=== PATIENT | male | born 1950 | race Caucasian/White ===

== ENCOUNTER → 2017-08-28 | Outpatient (CLI) | payer MEDICAID ==
[~2017-08-28] MED LIST: GADOBUTROL 7.5 MMOL/7.5 ML VIAL ONE; METF10002 PO; PENI250T91 PO
== END | disposition home or self-care (01) ==
LOC: CFH 08:08
PROVIDERS: ATTEND Genetic Counselor, MS
DX: G31.9 Degenerative disease of nervous system, unspecified (principal); G93.89 Other specified disorders of brain; I99.8 Other disorder of circulatory system; R20.2 Paresthesia of skin
CPT/HCPCS: 70553; A9585